=== PATIENT | female | born 1985 | race Caucasian/White ===

== ENCOUNTER 2017-12-08 08:58 | Emergency (ER) | payer SELFPAY ==
[~2017-12-08] VITALS: Ht 157.5 cm; Wt 62.2 kg
[2017-12-08 09:10] VITALS: BP 122/64
--- NOTE | 2017-12-08 09:10 | NUR ---
PATIENT AMBULATED TO BED 11
--- NOTE | 2017-12-08 09:15 | NUR ---
Note undone in EDM - 12/08/17 at 0916 by PATSY BIB SO. PATIENT PRESENTS TO ED WITH RIGHT SHOULDER PAIN. PT STATES SHE FELL OUT OF BED AND LANDED ON HER SHOLDER YESTERDAY MORNING. DENIES N/V/D; SKIN IS PINK/WARM/DRY; AAOX4 WITH EVEN AND STEADY GAIT; LUNGS CLEAR BL; HR EVEN AND REGULAR; PT DENIES ANY FEVER, CP, SOB, OR COUGH AT THIS TIME; PATIENT STATES PAIN OF 8/10 AT THIS TIME; VSS; PATIENT POSITIONED FOR COMFORT; HOB ELEVATED; BEDRAILS UP X2; BED DOWN. ER MD MADE AWARE OF PT STATUS.
--- NOTE | 2017-12-08 09:16 | NUR ---
C/O LT SHOULDER PAIN S/P FELL OFF THE BED YESTERDAY; UNABLE TO RAISE ARM ABOVE HER LT SHOULDER; DENIES N/V/D; SKIN IS PINK/WARM/DRY; AAOX4 WITH EVEN AND STEADY GAIT; LUNGS CLEAR BL; HR EVEN AND REGULAR; PT DENIES ANY FEVER, CP, SOB, OR COUGH AT THIS TIME; PATIENT STATES PAIN OF 8/10 AT THIS TIME; VSS; PATIENT POSITIONED FOR COMFORT; HOB ELEVATED; BEDRAILS UP X2; BED DOWN. ER MD MADE AWARE OF PT STATUS.
--- NOTE | 2017-12-08 09:41 | NUR ---
DR STERN EVALUATING AT BEDSIDE
[2017-12-08] MEDS ORDERED: IBUPROFEN 400 MG TAB PO ONE (10:00)
--- NOTE | 2017-12-08 10:05 | NUR ---
RAD AT BEDSIDE
[2017-12-08 11:01] VITALS: BP 122/64
== END 2017-12-08 10:05 | disposition home or self-care (01) ==
LOC: MED 08:58
DX: S49.82XA Other specified injuries of left shoulder and upper arm, initial encounter (principal); W19.XXXA Unspecified fall, initial encounter; Y93.89 Activity, other specified; Y92.89 Other specified places as the place of occurrence of the external cause; Y99.8 Other external cause status
CPT/HCPCS: 73030; 99284; Q0092